=== PATIENT | female | born 1955 | race Caucasian/White ===

== ENCOUNTER 2022-05-10 07:48 | Day surgery (SDC) | payer BC ==
[~2022-05-10] VITALS: Ht 162.6 cm; Wt 90.5 kg
[~2022-05-10 07:48] MED LIST: AMLODIPINE BESYL5 MG PO; BENZONATATE100 MG PO; COMBIGAN EYE DRO5 ML OU; COZAAR25 MG PO; CRESTOR10 MG PO; CYCLOBENZAPRINE10 MG PO; DEXILANT60 MG PO; DILAUDID2 MG PO; FLEXERIL10 MG PO; GLIMEPIRIDE2 MG PO; GLUCOPHAGE500 MG PO; JARDIANCE25 MG PO; K-TAB10 MEQ PO; LEVAQUIN750 MG PO; LEVOTHROID50 MCG PO; MEDROL4 M1 PO; NAPROSYN500 MG PO; ONGLYZA5 MG PO; PREDNISONE10 MG PO; ROBAXIN500 MG PO; SPIRONOLACTONE1 EACH PO; VICOPROFEN 2001 EACH PO; VITAMIN D250000 UNIT PO; XALATAN2.5 ML OU
--- NOTE | 2022-05-10 10:19 | NUR ---
05/10/22 1019 Sheets,Eula 1009 PT ARRIVED TO PACU WITH ORAL AIRWAY IN PLACE AND RESP EVEN AND UNLABORED. VSS. CBG 118. PT NONAROUSABLE.
--- NOTE | 2022-05-10 11:32 | NUR ---
1050 PATIENT BACK FROM PACU. PATIENT REPORT RECIEVED FROM TYESHA ROE. PATIENT IS DROWSY. PATIENT IS ON 2 LITERS VIA NASAL CANNULA. BREAHTING EQUAL AND UNLABORED. PATIENT SURGICAL SITE IS CLEAN, DRY AND INTACT. ICE APPLIED AT SITE. IVF INFUSING. 1100 OXYGEN TITRATED DOWN TO ROOM AIR. BREATHING EQUAL AND UNLABORED. OXYGEN SATURATIONS ABOVE 95%. 1130 PATIENT UP TO THE BATHROOM. ABLE TO VOID CLEAR AND YELLOW URINE. PATIENT DRINKING WATER AND EATING CRACKERS. CALL LIGHT WITHIN REACH NO FUTHER NEEDS. NO QUESTIONS AT THIS TIME.
--- NOTE | 2022-05-10 12:10 | NUR ---
1150-PATIENT LAYING IN BED WITH EYES CLOSED. RESP RATE EVEN AND UNLABORED. RATES PAIN 5/10, DENIES NASUEA. DRESSING IS CLEAN, DRY, AND INTACT. ICE PACK IN PLACE. PATIENT TOLERATED CRACKERS AND WATER. CALL LIGHT WITHIN REACH. 1153-PAIN MEDICATION GIVEN PER EMAR. LISA HUGGER TURNED ON AND WARM BLANKET PROVIDED.
--- NOTE | 2022-05-10 13:04 | NUR ---
1225-PATIENT UP TO RESTROOM WITH 1 RN ASSIST. GAIT STEADY AND TOLERATED WELL. PATIENT RATES PAIN 2/10. PATIENT READY TO GO HOME. 1230-PATIENT BACK TO ROOM AND GETTING DRESSED. 1240-PROVIDED PATIENT WITH DISCHARGE INSTRUCTIONS. ALL QUESTIONS ANSWERED. RATES PAIN 2/10. STATES HAVING SOME DIZZINESS BUT TOLERABLE. PATIENT AMBULATES TO WHEELCHAIR. GAIT STEADY. PROVIDED RIDE TO FRONT OF HOSPITAL WHERE SON WAS WAITING WITH THE CAR.
--- NOTE | 2022-05-11 08:32 | OR ---
[facility] [address] [place], [place] [address] Signed DATE OF OPERATION: 05/10/2022 SURGEON: Dawit Briseno MD PREOPERATIVE DIAGNOSIS: Posterior midline cervical epidermal cyst. POSTOPERATIVE DIAGNOSIS: Posterior midline cervical epidermal cyst. PROCEDURE: Excision of posterior midline cervical epidermal cyst. ESTIMATED BLOOD LOSS: None. 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 She has had trouble with a recurring epidermal cyst in the posterior cervical midline, it is where the base of the neck meets the upper part of her back. She decided she wanted to come and have it removed. It has been incised and drained at least twice before. It is very easy to identify. She is very aware of an epidermal cyst and that the entire cyst and cyst wall needs to be excised, otherwise, it tend to recur. Based on its location, we decided to use a transverse incision right in the crease of her neck to remove the cyst. She understands there is risk including, but not limited to bleeding, infection, scarring, change in contour of the skin as well as recurrent cyst in the same or other locations. She understands expected intraop and postop course. She has expressed understanding and would like to proceed. DESCRIPTION OF PROCEDURE: I met with Aye in our preop area. We both could easily identify the indurated area in her skin in the posterior midline of her neck, where it meets her upper back. We marked that area appropriately. After this, Aye was taken into the operating room and placed in the right lateral decubitus position with appropriate padding and monitoring under general LMA anesthesia. She was given preoperative antibiotics along with subcutaneous heparin. SCDs were utilized. She was then prepped and draped in the usual sterile fashion. We then made a transverse elliptical incision 4 mm wide to involve the pit in the surrounding skin. This was carried down around the lesion with the help of the cautery. The surrounding fat was quite supple. The entire lesion was passed off the field en bloc. We injected local anesthetic into the wound. The wound Electronically Signed By: DAWIT BRISENO MD 05/11/22 0832 PATIENT NAME: AYE BROCK OPERATIVE REPORT DATE OF : 51 REPORT #: [id number] PHYSICIAN: DAWIT BRISENO MD PCP: DEMETRIA CAVANAUGH MD REPORT IS CONFIDENTIAL AND NOT TO BE RELEASED WITHOUT AUTHORIZATION [facility] [address] [place], [place] [address] Signed was irrigated and suctioned out until clear. We closed the dermis with interrupted 3-0 subcuticular Monocryl sutures. The skin edges were reapproximated with a running 5-0 fast absorbing plain gut suture. Dry gauze and tape were then applied. Aye was rotated in the supine position, weaned from anesthesia, extubated in the OR, and taken into recovery room in stable condition. Dawit Briseno MD ALB/MODL /[id number] cc: Dawit Briseno MD Patient Chart Demetria Cavanaugh MD Copies: DAWIT BRISENO MD ~ Electronically Signed By: DAWIT BRISENO MD 05/11/22 0832 PATIENT NAME: AYE BROCK OPERATIVE REPORT DATE OF : 51 REPORT #: [id number] PHYSICIAN: DAWIT BRISENO MD PCP: DEMETRIA CAVANAUGH MD REPORT IS CONFIDENTIAL AND NOT TO BE RELEASED WITHOUT AUTHORIZATION
--- NOTE | 2022-05-16 15:01 | PATH ---
[facility] [address] [place], [place] [address] Signed SPECIMEN(S): A POSTERIOR CERVICAL CYST SPECIMEN SOURCE: A. POSTERIOR CERVICAL CYST CLINICAL HISTORY: Epidermal cyst. Excision posterior midline cervical cyst. FINAL PATHOLOGIC DIAGNOSIS: Skin, posterior neck, excision: - Deep dermal/subcutaneous scar, hemosiderin deposition, chronic inflammation and foreign body type giant cell reaction associated with non-polarizable material. - No cyst identified. COMMENT: The specimen was entirely submitted. NAL:cml:C2NR MICROSCOPIC EXAMINATION: Histologic sections of all submitted blocks are examined by light microscopy. These findings, together with the gross examination, support the pathologic diagnosis. Adjacent to the scar in the deep dermis/subcutaneous tissue is a focus of dense fibrous tissue with bland spindle cells. To rule out a neural neoplasm, an S100 immunohistochemical stain (with appropriately staining controls) was performed and is negative. This is interpreted as reactive fibrosis, part of the scar. GROSS DESCRIPTION: The specimen, labeled "PG, A," and designated on the requisition "posterior cervical cyst, epidermal cyst," is received in formalin and consists of an unoriented, yellow, lobulated, 2.7 x 2.7 x 1.5 cm tissue piece with overlying, lomas, markedly wrinkled, 2.7 x 0.6 cm in segment is without a discrete mass/lesion. The resection margin is inked blue, and the specimen is cross-sectioned to reveal yellow and lomas-white fibrous and fibroadipose tissue without a discrete mass/lesion. Baggage Inspector sections are submitted in one cassette (A1). AI (under the direct supervision of a pathologist) The remainder of the specimen is submitted in cassettes A2-A6 per Dr. Boykin's to request. FB PATIENT NAME: TANIA BROCK PATHOLOGY DATE OF : 51 REPORT #: [id number] PHYSICIAN: SCOTT LONG PCP: DEMARCUS BERNAL MD REPORT IS CONFIDENTIAL AND NOT TO BE RELEASED WITHOUT AUTHORIZATION [facility] [address] [place] [address] Signed The Gross Description was prepared using a voice recognition system. The report was reviewed for accuracy; however, sound-alike word errors, addition and/or deletions may occur. If there is any question about this report, please contact Client Services. PERFORMING LABORATORY: The technical component was performed by [employer] [address] (CLIA# [id number]). [facility] [place], [address] [address] (CLIA# [id number]). Diagnostician: Nikki Boykin MD Pathologist Electronically Signed 05/16/2022 Copies: ~ PATIENT NAME: TANIA BROCK PATHOLOGY DATE OF : 51 REPORT #: [id number] PHYSICIAN: SCOTT PATHOLOGY PCP: DEMARCUS BERNAL MD REPORT IS CONFIDENTIAL AND NOT TO BE RELEASED WITHOUT AUTHORIZATION
== END 2022-05-10 12:40 | disposition home or self-care (01) ==
LOC: DS 07:48
PROVIDERS: ATTEND Colon & Rectal Surgery
PROC: 0HB4XZZ Excision of Neck Skin, External Approach (ICD-10-PCS; principal; 2022-05-10 09:00)
DX: L72.0 Epidermal cyst (principal); E11.9 Type 2 diabetes mellitus without complications; I10 Essential (primary) hypertension; E78.5 Hyperlipidemia, unspecified; E03.9 Hypothyroidism, unspecified; E55.9 Vitamin D deficiency, unspecified; Z79.84 Long term (current) use of oral hypoglycemic drugs; Z88.1 Allergy status to other antibiotic agents; Z88.8 Allergy status to other drugs, medicaments and biological substances
CPT/HCPCS: 00320; J0461; J0690; J1100; J1644; J1885; J2250; J2405; J2704; J2765; J3010; J7121

== ENCOUNTER 2024-07-20 08:25 | Day surgery (SDC) | payer BC ==
[~2024-07-20] VITALS: Ht 162.6 cm; Wt 93.9 kg
[~2024-07-20 08:25] MED LIST changes: +CALCIUM500 MG PO; +FAMOTIDINE40 MG PO; +IBLOOD GLUCOSE TEST STRIP 1 EA TEST VI PRN; +LACTATED RINGER'S 1,000 ML IV SCH; +LIDOCAINE HCL 1% 5 ML SDV INJ ONE; +MIDAZOLAM HCL 5 MG/5 ML VIAL IV PRN; +SYNTHROID88 MCG PO; +TIMOLOL MALEATE5 M2; +VITAMIN D3125 MC1 PO; +fentaNYL citrate 100 MCG/2 ML VIAL IV PRN
[2024-07-20 08:50] VITALS: BP 137/72
[2024-07-20] MEDS ORDERED: MIDAZOLAM HCL 5 MG/5 ML VIAL ONE (09:41)
[2024-07-20] MEDS ORDERED: fentaNYL citrate 100 MCG/2 ML VIAL ONE (09:42)
--- NOTE | 2024-07-20 10:57 | NUR ---
07/20/24 Gautam7 EMANUEL PACKER 1034 PT ARRIVED TO PACU AWAKE AND TALKING. PT REPORTS NO PAIN. PT ON 2L OXYGEN VIA NASAL CANULLA. REPORT TAKEN FROM THERESA ARAMBULA. 1045 PT SITTING IN SEMI FOWLERS, SIPPING WATER. 1054 PT BLOOD GLUCOSE 146. 1055 REMOVED PT OXYGEN, PT SATURATION STAYING ABOVE 96% ON RA
[2024-07-20 11:19] VITALS: BP 115/66
--- NOTE | 2024-07-21 07:08 | OR ---
[facility] [address] [place], [place] [address] Signed DATE OF OPERATION: 07/20/2024 SURGEON: Dawit Briseno MD PREOPERATIVE DIAGNOSES: 1. Cologuard positive stool 2022. 2. Hemorrhoids. 3. Lifelong irritable bowel syndrome with diarrhea and some constipation. 4. Chronic lymphocytic colitis and eosinophilia. 5. Melanosis coli. POSTOPERATIVE DIAGNOSES: 1. 4 mm cecal polyp. 2. 4 mm polyp at 30 cm in sigmoid colon. PROCEDURE: Colonoscopy with hot biopsy and cold biopsies of the transverse colon, left colon and sigmoid colon. ESTIMATED BLOOD LOSS: None. 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 She happened to work with a couple of our primary care providers during her career. Her Cologuard test came back positive in 2022. Prior to that, it was negative. She thinks this is from her hemorrhoids. She is pretty certain Dr. Esequiel Alamo helped her with the colonoscopy somewhere before 2004. To her knowledge, it was negative. Dr. Hung helped her with her cholecystectomy in 2004 for her gallstones and upper abdominal symptoms. Her symptoms continued, so she had an upper endoscopy that same year with Dr. Hung using 5 mg of Versed and 100 mcg of fentanyl. The biopsies were negative. She was continued to have symptoms and so Dr. Hung helped her in that same year at the age of 50 with her colonoscopy. She used 10 mg of Versed and 150 mcg of fentanyl. She was having left upper quadrant abdominal pain and some irritable bowel syndrome mainly with diarrhea, but some constipation. The biopsies demonstrated chronic lymphocytic colitis and some eosinophilia. There was some melanosis coli as well. She cannot recall taking any steroids for the colitis. She said her symptoms have been lifelong. She said it is mostly diarrhea. She has no family history of colon cancer or [id number]. In the office, I had given her a pamphlet on colonoscopy. We reviewed the nature of the test. There is risk including, but not Electronically Signed By: DAWIT BRISENO MD 07/21/24 0708 PATIENT NAME: AYE BROCK OPERATIVE REPORT DATE OF : 51 REPORT #: [id number] PHYSICIAN: DAWIT BRISENO MD PCP: DEMETRIA BERNAL MD REPORT IS CONFIDENTIAL AND NOT TO BE RELEASED WITHOUT AUTHORIZATION [facility] [address] [place] [address] Signed limited to gas bloating, crampy abdominal pain, bleeding, perforation requiring surgery, and missed diagnosis. We also reviewed the written instructions for the bowel prep line by line. She also understands the need for IV conscious sedation. She said her would be available to take her home afterwards. She had expressed understanding and wished to proceed. DESCRIPTION OF PROCEDURE: Aye was taken into the endoscopy suite and placed in the left lateral decubitus position. She was given 6 mg of Versed and 150 mcg of fentanyl to cover the case. A digital rectal exam was performed. This was unremarkable. She had no external hemorrhoids. There were no masses noted. She had good sphincter tone. The adult colonoscope was introduced and advanced under direct visualization of the camera. It took a little extra sedation and some abdominal compression in order to get the camera down into the cecum itself. Her prep was quite good. We could easily see the appendiceal orifice and the ileocecal valve. We had taken pictures throughout for photodocumentation. The two polyps mentioned above were easily removed with the hot biopsy forceps. We took several random biopsies because of the lifelong history of diarrhea. There was no diverticulosis. Upon retroflexion of the scope in the rectum, there was no additional pathology noted above the anal canal. After this, the gas was suctioned out and the colonoscope removed. Aye tolerated the procedure quite well. RECOMMENDATIONS: I will see Aye back in my office in 7 to 14 days to review her results. Dawit Briseno MD [facility] /[id number] cc: MD Demetria Frausto MD Electronically Signed By: DAWIT BRISENO MD 07/21/24 0708 PATIENT NAME: AYE BROCK OPERATIVE REPORT DATE OF : 51 REPORT #: [id number] PHYSICIAN: DAWIT BRISENO MD PCP: DEMETRIA BERNAL MD REPORT IS CONFIDENTIAL AND NOT TO BE RELEASED WITHOUT AUTHORIZATION [address] [address] Signed Copies: DAWIT BRISENO MD ~ Electronically Signed By: DAWIT BRISENO MD 07/21/24 0708 PATIENT NAME: AYE BROCK VIANNEY OPERATIVE REPORT DATE OF : 51 REPORT #: [id number] PHYSICIAN: DAWIT BRISENO MD PCP: DEMETRIA BERNAL MD REPORT IS CONFIDENTIAL AND NOT TO BE RELEASED WITHOUT AUTHORIZATION
--- NOTE | 2024-07-22 17:03 | PATH ---
[facility] [address] [facility] [place], [place] [address] Signed SPECIMEN(S): A CECUM POLYP SPECIMEN(S): B TRANSVERSE BIOPSY SPECIMEN(S): C DESCENDING BIOPSY SPECIMEN(S): D SIGMOID POLYP, 30 CM SPECIMEN(S): E SIGMOID BIOPSY SPECIMEN SOURCE: A. CECUM POLYP B. TRANSVERSE BIOPSY C. DESCENDING BIOPSY D. SIGMOID POLYP, 30 CM E. SIGMOID BIOPSY CLINICAL HISTORY: Constipation, diarrhea, positive Cologuard, colitis, melanosis coli FINAL PATHOLOGIC DIAGNOSIS: A. Cecum polyp: - Tubular adenoma (one fragment). B. Transverse biopsy: - Tubular adenoma (one fragment). C. Descending biopsy: - Benign colonic mucosa, negative for specific diagnostic abnormality. D. Sigmoid polyp at 30 cm: - Hyperplastic polyp (one fragment). E. Sigmoid biopsy: - Benign colonic mucosa, negative for specific diagnostic abnormality. JVR:llc MICROSCOPIC EXAMINATION: Histologic sections of all submitted blocks are examined by light microscopy. These findings, together with the gross examination, support the pathologic diagnosis. GROSS DESCRIPTION: A. The specimen, labeled and designated "Kevon cecum polyp," is received in formalin and consists of one lomas soft tissue fragment, 0.3 cm. Entirely submitted in (A1). B. The specimen, labeled and designated "Kevon, transverse biopsy," is received in formalin and consists of two lomas soft tissue fragments, ranging from 0.1-0.3 cm. Entirely submitted in (B1). PATIENT NAME: TANIA BROCK PATHOLOGY DATE OF : 51 REPORT #: [id number] PHYSICIAN: [employer] PCP: DEMARCUS BERNAL MD REPORT IS CONFIDENTIAL AND NOT TO BE RELEASED WITHOUT AUTHORIZATION [facility] [address] [place], [place] [address] Signed C. The specimen, labeled and designated "Kevon, descending biopsy," is received in formalin and consists of one lomas soft tissue fragment, 0.7 cm. Entirely submitted in (C1). D. The specimen, labeled and designated "Kevon, sigmoid polyp, 30 cm," is received in formalin and consists of one lomas soft tissue fragment, 0.2 cm. Entirely submitted in (D1). E. The specimen, labeled and designated "Kevon, sigmoid biopsy," is received in formalin and consists of one lomas soft tissue fragment, 0.3 cm. Entirely submitted in (E1). VB (under the direct supervision of a pathologist) The Gross Description was prepared using a voice recognition system. The report was reviewed for accuracy; however, sound-alike word errors, addition and/or deletions may occur. If there is any question about this report, please contact Client Services. PERFORMING LABORATORY: Technical component was performed by [employer], [address] [place] [id number] (CLIA# [id number]). Professional interpretation was performed by [facility], [address] [place] [id number] (CLIA#: [id number]). Diagnostician: Abiodun Pennington MD Pathologist Electronically Signed 07/22/2024 Copies: ~ PATIENT NAME: TANIA BROCK PATHOLOGY DATE OF : 51 REPORT #: [id number] PHYSICIAN: SCOTT PATHOLOGY PCP: DEMARCUS BERNAL MD REPORT IS CONFIDENTIAL AND NOT TO BE RELEASED WITHOUT AUTHORIZATION
== END 2024-07-20 11:31 | disposition home or self-care (01) ==
LOC: DS 08:25
PROVIDERS: ATTEND Colon & Rectal Surgery
PROC: 0DBL8ZX Excision of Transverse Colon, Via Natural or Artificial Opening Endoscopic, Diagnostic (ICD-10-PCS; 2024-07-20)
PROC: 0DBN8ZX Excision of Sigmoid Colon, Via Natural or Artificial Opening Endoscopic, Diagnostic (ICD-10-PCS; 2024-07-20)
PROC: 0DBG8ZX Excision of Left Large Intestine, Via Natural or Artificial Opening Endoscopic, Diagnostic (ICD-10-PCS; principal; 2024-07-20 09:45)
DX: Z12.11 Encounter for screening for malignant neoplasm of colon (principal); D12.0 Benign neoplasm of cecum; D12.3 Benign neoplasm of transverse colon; K63.5 Polyp of colon; K58.2 Mixed irritable bowel syndrome; K21.9 Gastro-esophageal reflux disease without esophagitis; E11.9 Type 2 diabetes mellitus without complications; I10 Essential (primary) hypertension; E03.9 Hypothyroidism, unspecified; E78.5 Hyperlipidemia, unspecified; M81.0 Age-related osteoporosis without current pathological fracture; E66.9 Obesity, unspecified; Z68.35 Body mass index [BMI] 35.0-35.9, adult; Z79.890 Hormone replacement therapy; Z79.899 Other long term (current) drug therapy; Z88.8 Allergy status to other drugs, medicaments and biological substances; Z90.49 Acquired absence of other specified parts of digestive tract
CPT/HCPCS: 99153; G0500; J2250; J3010; J7121